=== PATIENT | male | born 2000 | race Caucasian/White ===

== ENCOUNTER 2022-04-04 23:50 | Emergency (ER) | payer OTHER ==
[~2022-04-04] VITALS: Ht 177.8 cm; Wt 87.3 kg
[2022-04-05] MEDS ORDERED: IBUPROFEN 600MG TAB PO ONE (05:15)
[2022-04-05] MEDS ORDERED: LIDOCAINE VISCOUS 2% SOLN 15ML UDC SS ONE (05:15)
[2022-04-05] MEDS ORDERED: BENZ200C70 PO (05:38)
[2022-04-05] MEDS ORDERED: IBUP-1022 PO (05:38)
[2022-04-05 05:46] VITALS: BP 128/78
[2022-04-05 05:54] LABS: MONO SCRN NEGATIVE (NEGATIVE)
== END 2022-04-05 05:49 | disposition home or self-care (01) ==
LOC: M ED 23:50
DX: J02.9 Acute pharyngitis, unspecified (principal)

== ENCOUNTER 2022-04-27 10:48 | Inpatient (IN) | payer OTHER ==
[~2022-04-27] VITALS: Ht 177.8 cm; Wt 83.6 kg
[~2022-04-27 10:48] MED LIST: BENZ200C70 PO; IBUP-1022 PO
[2022-04-27 11:56] LABS: HEMATOCRIT 45.7 % (42.0-52.0); HEMOGLOBIN 15.2 g/dl (13.5-17.5); MEAN CORPUSCULAR HGB CONC 33.3 g/dl (32.0-36.5); MEAN CORPUSCULAR VOLUME 90.3 fl (80.0-96.0); PLATELET COUNT, AUTOMATED 378 10^3/uL (150-450); RED BLOOD COUNT 5.06 10^6/uL (4.30-6.10); WHITE BLOOD COUNT 9.8 10^3/uL (4.0-10.0)
[2022-04-27 12:21] LABS: ETHYL ALCOHOL (ETHANOL) 0.003 % (0.000-0.010)
[2022-04-27 12:22] LABS: ACETAMINOPHEN LEVEL < 2.0 UG/ML (10.0-20.0); BILIRUBIN,DIRECT 0.1 MG/DL (<0.4); SALICYLATE LEVEL < 3.0 MG/DL (<30)
[2022-04-27 12:23] LABS: ALBUMIN 4.4 G/DL (3.2-5.2); ALKALINE PHOSPHATASE 103 U/L (46-116); ALT/SGPT 25 U/L (7.0-40); AST/SGOT 17 U/L (<34); BILIRUBIN,TOTAL 0.3 MG/DL (0.3-1.2); BLOOD UREA NITROGEN 16 MG/DL (9-23); CALCIUM LEVEL 9.5 MG/DL (8.5-10.1); CARBON DIOXIDE LEVEL 27 MMOL/L (20-31); CHLORIDE LEVEL 104 MMOL/L (98-107); CREATININE FOR GFR 1.15 MG/DL (0.70-1.30); GLOMERULAR FILTRATION RATE > 60.0 (>60); GLUCOSE, FASTING 81 MG/DL (60-100); POTASSIUM SERUM 3.8 MMOL/L (3.5-5.1); SODIUM LEVEL 140 MMOL/L (136-145); TOTAL PROTEIN 8.1 G/DL (5.7-8.2)
[2022-04-27 12:25] LABS: THYROID STIMULATING HORMONE 1.101 uIU/ML (0.55-4.78)
[2022-04-27 12:44] LABS: BENZODIAZEPINES URINE NEGATIVE (NEGATIVE); METHADONE URINE NEGATIVE (NEGATIVE)
[2022-04-27 12:45] LABS: AMPHETAMINES LEVEL URINE NEGATIVE (NEGATIVE); CANNABINOIDS URINE NEGATIVE (NEGATIVE); COCAINE METABOLITE URINE NEGATIVE (NEGATIVE); OPIATES URINE NEGATIVE (NEGATIVE); PHENCYCLIDINE URINE NEGATIVE (NEGATIVE)
[2022-04-27 12:46] LABS: BARBITURATES URINE NEGATIVE (NEGATIVE)
[2022-04-27] MEDS ORDERED: ACETAMINOPHEN TAB 650MG DOSE (2X325MG) PO PRN (20:05)
[2022-04-27] MEDS ORDERED: traZODone 50 MG TAB PO PRN (20:05)
[2022-04-27] MEDS ORDERED: MAALOX 30 ML SUSP *UDC PO PRN (20:05)
[2022-04-27] MEDS ORDERED: MOM 30ML SUSPENSION UDC PO PRN (20:05)
[2022-04-27] MEDS ORDERED: HOME MED LIST COMPLETE! XX SCH (20:25)
[2022-04-27 22:05] VITALS: BP 107/65
[2022-04-28 06:27] VITALS: BP 119/75
[2022-04-28] MEDS: NICOTINE 21MG/24HR 1 EA TRANSDERMAL TD SCH (16:37)
[2022-04-28 19:07] VITALS: BP 137/82
[2022-04-29 06:51] VITALS: BP 137/75
[2022-04-29] MEDS: NICOTINE 21MG/24HR 1 EA TRANSDERMAL TD SCH (09:16)
[2022-04-29 17:24] VITALS: BP 136/90
[2022-04-30 06:28] VITALS: BP 135/75
[2022-04-30] MEDS: NICOTINE 21MG/24HR 1 EA TRANSDERMAL TD SCH (08:22)
[2022-04-30 17:17] VITALS: BP 143/70
[2022-05-01] MEDS: NICOTINE 21MG/24HR 1 EA TRANSDERMAL TD SCH (09:29)
[2022-05-01 20:28] VITALS: BP 141/88
[2022-05-02 06:09] VITALS: BP 110/79
[2022-05-02] MEDS: NICOTINE 21MG/24HR 1 EA TRANSDERMAL TD SCH (08:42)
== END 2022-05-02 10:52 | disposition home or self-care (01) | DRG 881 ==
LOC: M ED 10:48 → M ED INP 20:05 → M PSY 21:38
PROVIDERS: ADMIT Psychiatry & Neurology Psychiatry; ATTEND Psychiatry & Neurology Psychiatry
DX: F43.21 Adjustment disorder with depressed mood (principal); R45.851 Suicidal ideations; Z63.5 Disruption of family by separation and divorce; Z91.51 Personal history of suicidal behavior; Z91.52 Personal history of nonsuicidal self-harm; Z56.89 Other problems related to employment; Z62.810 Personal history of physical and sexual abuse in childhood; Z62.811 Personal history of psychological abuse in childhood; Z62.812 Personal history of neglect in childhood; F17.290 Nicotine dependence, other tobacco product, uncomplicated; F17.210 Nicotine dependence, cigarettes, uncomplicated; F32.A Depression, unspecified; Z20.822 Contact with and (suspected) exposure to COVID-19